=== PATIENT | female | born 2000 | race Caucasian/White ===

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

== ENCOUNTER 2018-05-15 18:35 | Emergency (ER) | payer OTHER ==
[~2018-05-15] VITALS: Ht 170.2 cm; Wt 64.0 kg
[~2018-05-15 18:35] MED LIST changes: +PREN1TAB60 PO
[2018-05-15 19:34] LABS: CULTURE INDICATED? YES; MICROSCOPIC INDICATED
[2018-05-15 19:37] LABS: ALANINE AMINOTRANSFERASE 31 U/L (12-78); ALBUMIN 2.6 g/dL (3.4-5.0); ANION GAP 9 mmol/L (5-15); CALCIUM 8.1 mg/dL (8.5-10.1); CHLORIDE 111 mmol/L (98-107); CREATININE 0.55 mg/dL (0.55-1.02)
[2018-05-15 19:39] LABS: ALKALINE PHOSPHATASE 126 U/L (45-117); BILIRUBIN,TOTAL 0.6 mg/dL (0.2-1.0); TOTAL PROTEIN 6.1 g/dL (6.4-8.2)
[2018-05-15] MEDS ORDERED: IBUPROFEN 200 MG TABLET PO ONE (20:00)
[2018-05-15] MEDS ORDERED: IBUPROFEN 200 MG TABLET ONE (20:02)
[2018-05-15 20:26] LABS: BASOPHILS # (AUTO) 0.02 x10^3/uL (0-0.3); BASOPHILS % (AUTO) 0 % (0-1); EOSINOPHILS % (AUTO) 0 % (1-7); LYMPHOCYTES # (AUTO) 1.14 x10^3/uL (1-6.1); LYMPHOCYTES % (AUTO) 8 % (22-44); MD NO; MEAN CORPUSCULAR HEMOGLOBIN 27.8 pg (27.0-34.8); MEAN CORPUSCULAR HGB CONC 33.4 g/dL (32.4-35.8); MEAN CORPUSCULAR VOLUME 83.4 fL (80-100); MEAN PLATELET VOLUME 10.4 fL (7.4-10.4); MONOCYTES # (AUTO) 0.46 x10^3/uL (0-1.4); MONOCYTES % (AUTO) 3 % (2-9); NEUTROPHILS # (AUTO) 12.45 x10^3/uL (1.8-8.0); NEUTROPHILS % (AUTO) 89 % (42-75); PLATELET COUNT 215 x10^3/uL (130-400); RED CELL DISTRIBUTION WIDTH 16.1 % (9.6-15.2)
[2018-05-15 20:48] VITALS: BP 125/69
== END 2018-05-15 20:51 | disposition home or self-care (01) ==
LOC: ED 20:14
DX: O72.1 Other immediate postpartum hemorrhage (principal); N95.0 Postmenopausal bleeding
CPT/HCPCS: 36415; 80053; 81001; 85025; 87086; 99284

== ENCOUNTER 2018-09-19 19:36 | Emergency (ER) | payer OTHER ==
[~2018-09-19] VITALS: Ht 170.2 cm; Wt 50.9 kg
[2018-09-19] MEDS ORDERED: SODIUM CHLORIDE 0.9% 1,000ML IVBOLUS ONE (20:00)
[2018-09-19] MEDS ORDERED: SODIUM CHLORIDE FLUSH 10ML SYR IVF ONE (20:00)
[2018-09-19 20:14] LABS: BASOPHILS # (AUTO) 0.02 x10^3/uL (0-0.3); BASOPHILS % (AUTO) 0 % (0-1); EOSINOPHILS % (AUTO) 0 % (1-7); LYMPHOCYTES # (AUTO) 1.45 x10^3/uL (1-6.1); LYMPHOCYTES % (AUTO) 12 % (22-44); MD NO; MEAN CORPUSCULAR HEMOGLOBIN 26.8 pg (27.0-34.8); MEAN CORPUSCULAR VOLUME 81.2 fL (80-100); MEAN PLATELET VOLUME 9.2 fL (7.4-10.4); MONOCYTES # (AUTO) 0.62 x10^3/uL (0-1.4); MONOCYTES % (AUTO) 5 % (2-9); NEUTROPHILS # (AUTO) 10.01 x10^3/uL (1.8-8.0); NEUTROPHILS % (AUTO) 83 % (42-75); PLATELET COUNT 236 x10^3/uL (130-400); RED CELL DISTRIBUTION WIDTH 15.1 % (9.6-15.2)
[2018-09-19 20:23] LABS: ALANINE AMINOTRANSFERASE 39 U/L (12-78); ALBUMIN 3.5 g/dL (3.4-5.0); ANION GAP 10 mmol/L (5-15); CALCIUM 8.2 mg/dL (8.5-10.1); CHLORIDE 114 mmol/L (98-107); CREATININE 0.58 mg/dL (0.55-1.02)
[2018-09-19 20:28] LABS: ALKALINE PHOSPHATASE 76 U/L (45-117); BILIRUBIN,TOTAL 0.4 mg/dL (0.2-1.0); TOTAL PROTEIN 6.5 g/dL (6.4-8.2)
[2018-09-19] MEDS ORDERED: KETOROLAC 30 MG/1 ML ONE (20:31)
[2018-09-19 20:52] LABS: MICROSCOPIC AUTO
[2018-09-19 20:55] LABS: CULTURE INDICATED? YES
[2018-09-19] MEDS ORDERED: KETOROLAC 30 MG/1 ML IVPush ONE (21:00)
[2018-09-19 23:36] VITALS: BP 137/61
== END 2018-09-19 23:37 | disposition home or self-care (01) ==
LOC: ED 21:10
DX: S06.0X9A Concussion with loss of consciousness of unspecified duration, initial encounter (principal); N83.11 Corpus luteum cyst of right ovary; R55 Syncope and collapse; R51 Headache; W19.XXXA Unspecified fall, initial encounter; Y93.89 Activity, other specified; Y99.8 Other external cause status; Y92.89 Other specified places as the place of occurrence of the external cause
CPT/HCPCS: 36415; 70450; 76830; 80053; 81001; 84703; 85025; 87086; 93005; 96361; 96374; 99284; J1885; J7030

== ENCOUNTER 2018-12-07 07:49 | Emergency (ER) | payer OTHER ==
[~2018-12-07] VITALS: Ht 167.6 cm; Wt 61.6 kg
[2018-12-07 07:53] VITALS: BP 113/71
[2018-12-07 08:25] LABS: MICROSCOPIC NOT IND
[2018-12-07 08:33] LABS: CULTURE INDICATED? NO
[2018-12-07 08:37] LABS: BASOPHILS # (AUTO) 0.02 x10^3/uL (0-0.3); BASOPHILS % (AUTO) 0 % (0-1); EOSINOPHILS % (AUTO) 0 % (1-7); LYMPHOCYTES # (AUTO) 1.53 x10^3/uL (1-6.1); LYMPHOCYTES % (AUTO) 20 % (22-44); MD NO; MEAN CORPUSCULAR HGB CONC 32.1 g/dL (32.4-35.8); MEAN CORPUSCULAR VOLUME 80.8 fL (80-100); MEAN PLATELET VOLUME 9.4 fL (7.4-10.4); MONOCYTES # (AUTO) 0.46 x10^3/uL (0-1.4); MONOCYTES % (AUTO) 6 % (2-9); NEUTROPHILS # (AUTO) 5.66 x10^3/uL (1.8-8.0); NEUTROPHILS % (AUTO) 74 % (42-75); PLATELET COUNT 262 x10^3/uL (130-400); RED BLOOD COUNT 4.52 x10^6/uL (3.82-5.3); RED CELL DISTRIBUTION WIDTH 16.7 % (9.6-15.2)
[2018-12-07 08:49] LABS: ALBUMIN 3.6 g/dL (3.4-5.0); ANION GAP 5 mmol/L (5-15); CALCIUM 8.6 mg/dL (8.5-10.1); CHLORIDE 108 mmol/L (98-107); CREATININE 0.82 mg/dL (0.55-1.02)
--- NOTE | 2018-12-07 08:56 | NUR ---
PT TO IMAGING NOW
== END 2018-12-07 10:57 | disposition home or self-care (01) ==
LOC: ED 10:08
DX: N83.292 Other ovarian cyst, left side (principal); N83.291 Other ovarian cyst, right side; R10.2 Pelvic and perineal pain
CPT/HCPCS: 36415; 76830; 80048; 81003; 82040; 84703; 85025; 93005; 99284

== ENCOUNTER 2019-01-01 23:24 | Emergency (ER) | payer OTHER ==
[~2019-01-01] VITALS: Ht 170.2 cm; Wt 61.1 kg
[2019-01-01 23:26] VITALS: BP 127/85
[2019-01-02 00:01] LABS: BASOPHILS # (AUTO) 0.03 x10^3/uL (0-0.3); BASOPHILS % (AUTO) 1 % (0-1); EOSINOPHILS # (AUTO) 0.14 x10^3/uL (0-0.8); EOSINOPHILS % (AUTO) 2 % (1-7); LYMPHOCYTES # (AUTO) 1.89 x10^3/uL (1-6.1); LYMPHOCYTES % (AUTO) 28 % (22-44); MD NO; MEAN CORPUSCULAR HEMOGLOBIN 27.4 pg (27.0-34.8); MEAN CORPUSCULAR HGB CONC 33.1 g/dL (32.4-35.8); MEAN CORPUSCULAR VOLUME 82.8 fL (80-100); MEAN PLATELET VOLUME 9.5 fL (7.4-10.4); MONOCYTES # (AUTO) 0.42 x10^3/uL (0-1.4); MONOCYTES % (AUTO) 6 % (2-9); NEUTROPHILS # (AUTO) 4.29 x10^3/uL (1.8-8.0); NEUTROPHILS % (AUTO) 63 % (42-75); PLATELET COUNT 218 x10^3/uL (130-400); RED BLOOD COUNT 4.47 x10^6/uL (3.82-5.3); RED CELL DISTRIBUTION WIDTH 16.2 % (9.6-15.2)
[2019-01-02 00:13] LABS: ALANINE AMINOTRANSFERASE 29 U/L (12-78); ALBUMIN 3.5 g/dL (3.4-5.0); ANION GAP 4 mmol/L (5-15); CALCIUM 8.1 mg/dL (8.5-10.1); CHLORIDE 114 mmol/L (98-107); CREATININE 0.65 mg/dL (0.55-1.02)
[2019-01-02 00:16] LABS: ALKALINE PHOSPHATASE 66 U/L (45-117); BILIRUBIN,TOTAL 0.2 mg/dL (0.2-1.0); TOTAL PROTEIN 6.6 g/dL (6.4-8.2)
[2019-01-02 00:22] LABS: HCG UR SG 1.024 (1.003-1.030)
[2019-01-02 00:23] LABS: MICROSCOPIC INDICATED
[2019-01-02 00:31] LABS: CULTURE INDICATED? NO
--- NOTE | 2019-01-02 01:19 | NUR ---
PT RESTING CALMLY IN BED IN HOSPITAL GOWN WITH EYES CLOSED. NO STATED NEEDS AT THIS TIME.
== END 2019-01-02 01:33 | disposition home or self-care (01) ==
LOC: ED 23:45
DX: R10.11 Right upper quadrant pain (principal); R10.31 Right lower quadrant pain; R11.0 Nausea
CPT/HCPCS: 36415; 76700; 76830; 80053; 81001; 81025; 83690; 85025; 99284

== ENCOUNTER 2019-01-27 03:03 | Emergency (ER) | payer OTHER ==
[~2019-01-27] VITALS: Ht 170.2 cm; Wt 63.0 kg
[~2019-01-27 03:03] MED LIST changes: +ACET325T14 PO; +CALC200T24 PO; +FLUD0.1T PO; +LIDO700A20 TD; +MIDO5TAB9 PO
--- NOTE | 2019-01-27 03:29 | NUR ---
PT HERE FOR DIZZINESS AT WORK TODAY AFTER STANDING UP DURING LUNCH. PT HAS HX OF SAME. VSS. PT AMBULATED TO BATHROOM WITH A STEADY GAIT. PT ALSO COMPLAINING OF RIGHT RIB PAIN. CALL LIGHT IN REACH
[2019-01-27 03:31] LABS: BASOPHILS # (AUTO) 0.03 x10^3/uL (0-0.3); BASOPHILS % (AUTO) 1 % (0-1); EOSINOPHILS # (AUTO) 0.09 x10^3/uL (0-0.8); EOSINOPHILS % (AUTO) 2 % (1-7); LYMPHOCYTES # (AUTO) 1.54 x10^3/uL (1-6.1); LYMPHOCYTES % (AUTO) 25 % (22-44); MD NO; MEAN CORPUSCULAR HEMOGLOBIN 27.6 pg (27.0-34.8); MEAN CORPUSCULAR HGB CONC 33.8 g/dL (32.4-35.8); MEAN CORPUSCULAR VOLUME 81.7 fL (80-100); MEAN PLATELET VOLUME 9.1 fL (7.4-10.4); MONOCYTES # (AUTO) 0.53 x10^3/uL (0-1.4); MONOCYTES % (AUTO) 9 % (2-9); NEUTROPHILS # (AUTO) 3.98 x10^3/uL (1.8-8.0); NEUTROPHILS % (AUTO) 65 % (42-75); PLATELET COUNT 227 x10^3/uL (130-400); RED BLOOD COUNT 3.39 x10^6/uL (3.82-5.3); RED CELL DISTRIBUTION WIDTH 16.3 % (9.6-15.2)
[2019-01-27 03:41] LABS: ALBUMIN 3.5 g/dL (3.4-5.0); ANION GAP 6 mmol/L (5-15); CALCIUM 8.1 mg/dL (8.5-10.1); CHLORIDE 114 mmol/L (98-107); CREATININE 0.65 mg/dL (0.55-1.02)
[2019-01-27 04:25] VITALS: BP 108/71
--- NOTE | 2019-01-27 04:39 | NUR ---
Patient given discharge instructions and they have confirmed that they understand the instructions. Patient ambulatory with steady gait.
== END 2019-01-27 04:57 | disposition home or self-care (01) ==
LOC: ED 03:53
DX: R55 Syncope and collapse (principal); D50.0 Iron deficiency anemia secondary to blood loss (chronic)
CPT/HCPCS: 36415; 80048; 82040; 84703; 85025; 93005; 99284

== ENCOUNTER 2019-03-16 14:27 | Emergency (ER) | payer OTHER ==
[~2019-03-16] VITALS: Ht 170.2 cm; Wt 63.0 kg
[2019-03-16 14:53] LABS: BASOPHILS # (AUTO) 0.07 x10^3/uL (0-0.1); BASOPHILS % (AUTO) 1 % (0-1); EOSINOPHILS % (AUTO) 0 % (1-7); LYMPHOCYTES # (AUTO) 1.56 x10^3/uL (1-3.4); LYMPHOCYTES % (AUTO) 16 % (22-44); MD NO; MEAN CORPUSCULAR HEMOGLOBIN 25.8 pg (27.0-34.8); MEAN CORPUSCULAR VOLUME 80.8 fL (80-100); MEAN PLATELET VOLUME 9.3 fL (7.4-10.4); MONOCYTES # (AUTO) 0.62 x10^3/uL (0.2-0.8); MONOCYTES % (AUTO) 7 % (2-9); NEUTROPHILS # (AUTO) 7.23 x10^3/uL (1.8-6.8); NEUTROPHILS % (AUTO) 76 % (42-75); PLATELET COUNT 270 x10^3/uL (130-400); RED BLOOD COUNT 4.18 x10^6/uL (3.82-5.3); RED CELL DISTRIBUTION WIDTH 15.8 % (9.6-15.2)
--- NOTE | 2019-03-16 14:55 | NUR ---
TASK RN NOTE: PT GABRIEL, REPORT RECEIVED FROM EMS. C/O RIGHT LOWER ABD PAIN X 2 DAYS WITH YELLOW VAG DISCHARGE. DIZZINESS UPON STANDING STARTING TODAY. RECENT DX WITH HOSPITALIZATION FOR ORTHOSTATIC HYPOTENSION. LMP 01/30/19, STATES SHE HAS HAD POS TEST X 2, BUT NO US DONE YET. FINGERSTICK BG [address] R[address]TE DELIVERY CLERK. EKG TAKEN BY EDT, REVIEWED BY MIHIR SUMMERS. PT UP TO BATHROOM WITH TECH ASSIST AT THIS TIME, REPORT GIVEN TO PEYMAN SUGGS.
[2019-03-16] MEDS ORDERED: ACETAMINOPHEN 325 MG TABLET PO ONE (15:00)
[2019-03-16 15:05] LABS: ALANINE AMINOTRANSFERASE 25 U/L (12-78); ALBUMIN 3.4 g/dL (3.4-5.0); ANION GAP 6 mmol/L (5-15); CALCIUM 8.4 mg/dL (8.5-10.1); CHLORIDE 111 mmol/L (98-107); CREATININE 0.59 mg/dL (0.55-1.02)
[2019-03-16 15:23] LABS: ALKALINE PHOSPHATASE 61 U/L (45-117); BILIRUBIN,TOTAL 0.2 mg/dL (0.2-1.0); TOTAL PROTEIN 6.5 g/dL (6.4-8.2)
[2019-03-16] MEDS ORDERED: ACETAMINOPHEN 325 MG TABLET ONE (16:36)
[2019-03-16 17:04] LABS: CLUE CELLS PRESENT (NONE SEEN)
[2019-03-16 17:05] LABS: WET PREP WBCS FEW (FEW)
[2019-03-16 17:12] LABS: MICROSCOPIC NOT IND
[2019-03-16 17:29] LABS: CULTURE INDICATED? NO
[2019-03-16 18:12] VITALS: BP 113/70
--- NOTE | 2019-03-16 18:13 | NUR ---
TASK RN: Patient/Caregiver given discharge instructions and they have confirmed that they understand the instructions. Patient ambulatory with steady gait.
== END 2019-03-16 18:14 | disposition home or self-care (01) ==
LOC: ED 15:34
DX: O26.891 Other specified pregnancy related conditions, first trimester (principal); R42 Dizziness and giddiness; N76.0 Acute vaginitis; Z3A.08 8 weeks gestation of pregnancy
CPT/HCPCS: 36415; 76801; 80053; 81003; 84702; 85025; 86901; 87210; 87491; 87591; 87808; 93005; 99284

== ENCOUNTER 2019-03-28 11:30 | Emergency (ER) | payer OTHER ==
[~2019-03-28] VITALS: Ht 170.2 cm; Wt 62.3 kg
--- NOTE | 2019-03-28 11:55 | NUR ---
pt up to restroom with standby assist. pt ambulates with a steady gait. pt educated on calling before attempting to get up.. pt agrees and call light is in reach.
[2019-03-28] MEDS ORDERED: SODIUM CHLORIDE 0.9%, 500ML IVBOLUS ONE (12:00)
[2019-03-28] MEDS ORDERED: ONDANSETRON 2MG/ML, 2ML ONE (12:22)
[2019-03-28 12:27] LABS: MICROSCOPIC NOT IND
--- NOTE | 2019-03-28 12:28 | NUR ---
pt call light multiple times. initial call light pt c/o headache and the provider is made aware. no orders recieved. pt call light pt c/o nausea, provider made aware. pt medicated per order. pt call light, wants another warm blanket. blanket provided.
[2019-03-28 12:29] LABS: BASOPHILS # (AUTO) 0.05 x10^3/uL (0-0.1); BASOPHILS % (AUTO) 0 % (0-1); EOSINOPHILS % (AUTO) 0 % (1-7); LYMPHOCYTES # (AUTO) 1.12 x10^3/uL (1-3.4); LYMPHOCYTES % (AUTO) 11 % (22-44); MD NO; MEAN CORPUSCULAR HEMOGLOBIN 25.3 pg (27.0-34.8); MEAN CORPUSCULAR HGB CONC 31.6 g/dL (32.4-35.8); MEAN PLATELET VOLUME 9.7 fL (7.4-10.4); MONOCYTES # (AUTO) 0.57 x10^3/uL (0.2-0.8); MONOCYTES % (AUTO) 5 % (2-9); NEUTROPHILS # (AUTO) 8.91 x10^3/uL (1.8-6.8); NEUTROPHILS % (AUTO) 84 % (42-75); PLATELET COUNT 227 x10^3/uL (130-400); RED BLOOD COUNT 4.48 x10^6/uL (3.82-5.3); RED CELL DISTRIBUTION WIDTH 16.2 % (9.6-15.2)
[2019-03-28 12:30] LABS: CULTURE INDICATED? NO
[2019-03-28] MEDS ORDERED: ONDANSETRON 2MG/ML, 2ML IVPush ONE (12:30)
[2019-03-28 12:43] LABS: ALBUMIN 3.4 g/dL (3.4-5.0); ANION GAP 8 mmol/L (5-15); CALCIUM 8.7 mg/dL (8.5-10.1); CHLORIDE 110 mmol/L (98-107); CREATININE 0.59 mg/dL (0.55-1.02)
--- NOTE | 2019-03-28 12:46 | NUR ---
pt call light on. pt wondering if she can "get something for my figueroa" pt informed that no new orders were recieved. pt informed that this rn will bring it to the attention of the provider
[2019-03-28 13:56] VITALS: BP 113/68
--- NOTE | 2019-03-28 14:00 | NUR ---
late note [id number] pt refusing to leave. providers made aware. provider in room to discuss with pt.
== END 2019-03-28 14:05 | disposition home or self-care (01) ==
LOC: ED 13:51
DX: O26.891 Other specified pregnancy related conditions, first trimester (principal); R55 Syncope and collapse; Z3A.08 8 weeks gestation of pregnancy
CPT/HCPCS: 36415; 80048; 81003; 82040; 82533; 83735; 84300; 85025; 93005; 96374; 99284; J2405

== ENCOUNTER 2019-12-08 16:31 | Emergency (ER) | payer OTHER, MEDICAID ==
[~2019-12-08] VITALS: Ht 170.2 cm; Wt 65.0 kg
[2019-12-08 16:48] VITALS: BP 119/49
[2019-12-08] MEDS ORDERED: OXYcodone/APAP 5/325MG TABLET ONE (17:57)
[2019-12-08] MEDS ORDERED: OXYcodone/APAP 5/325MG TABLET PO ONE (18:00)
--- NOTE | 2019-12-08 18:29 | NUR ---
MEDICATED, GIVEN ICE PACK
== END 2019-12-08 19:27 | disposition home or self-care (01) ==
LOC: ED 18:54
DX: S30.0XXA Contusion of lower back and pelvis, initial encounter (principal); X58.XXXA Exposure to other specified factors, initial encounter; Y93.89 Activity, other specified; Y92.89 Other specified places as the place of occurrence of the external cause; Y99.8 Other external cause status
CPT/HCPCS: 72110; 72220; 99284

== ENCOUNTER 2020-01-30 07:26 | Emergency (ER) | payer MEDICAID, OTHER ==
[~2020-01-30] VITALS: Ht 170.2 cm; Wt 65.9 kg
[2020-01-30 07:29] VITALS: BP 121/78
[2020-01-30] MEDS ORDERED: OXYcodone/APAP 5/325MG TABLET PO ONE (08:00)
--- NOTE | 2020-01-30 08:08 | NUR ---
requested records from [facility].
[2020-01-30] MEDS ORDERED: OXYcodone/APAP 5/325MG TABLET ONE (08:14)
--- NOTE | 2020-01-30 08:20 | NUR ---
PT HERE WITH C/O L HIP PAIN D/T FALL IN SHOWER 2 DAYS AGO. PT DID GO TO [facility] AND HAD FILMS OF HIP AND PELVIS, NO FRACTURE REPORTED PER PT. PT STATES PAIN GETS WORSE AT NIGHT AND SHE HAS TROUBLE WITH SLEEPING. PT STATES SHE IS HERE FOR PAIN CONTROL. RECORDS FROM [facility] REQUESTED
--- NOTE | 2020-01-30 08:49 | NUR ---
received records from [facility].
== END 2020-01-30 10:10 | disposition home or self-care (01) ==
LOC: ED 07:50
DX: S39.012A Strain of muscle, fascia and tendon of lower back, initial encounter (principal); S76.012A Strain of muscle, fascia and tendon of left hip, initial encounter; W18.2XXA Fall in (into) shower or empty bathtub, initial encounter; Y93.89 Activity, other specified; Y92.89 Other specified places as the place of occurrence of the external cause; Y99.8 Other external cause status
CPT/HCPCS: 99284

== ENCOUNTER 2020-02-13 09:12 | Emergency (ER) | payer OTHER, MEDICAID ==
[~2020-02-13] VITALS: Ht 170.2 cm; Wt 66.0 kg
[2020-02-13 09:20] VITALS: BP 152/86
--- NOTE | 2020-02-13 09:41 | NUR ---
ERMD at bedside for assessment.
--- NOTE | 2020-02-13 10:08 | NUR ---
Pt ok for D/C. Steady gait upon d/c, has all own belongings. Verbalized understanding of d/c paperwork.
== END 2020-02-13 10:10 | disposition home or self-care (01) ==
LOC: ED 09:45
DX: S39.012A Strain of muscle, fascia and tendon of lower back, initial encounter (principal); W18.2XXA Fall in (into) shower or empty bathtub, initial encounter; Y93.89 Activity, other specified; Y92.89 Other specified places as the place of occurrence of the external cause; Y99.8 Other external cause status
CPT/HCPCS: 99282

== ENCOUNTER 2020-02-26 09:28 | Emergency (ER) | payer OTHER, MEDICAID ==
[~2020-02-26] VITALS: Ht 170.2 cm; Wt 70.0 kg
[2020-02-26 09:46] VITALS: BP 129/88
--- NOTE | 2020-02-26 09:46 | NUR ---
FIRST CONTACT WITH PT. PT C/O LEFT HIP PAIN WORSENING FROM FALL 1.5 WEEKS AGO. STATED WAS HERE WHEN FIRST FELL. STATED HAVING NUMBNESS AND TINGLING ON FRONT OF LEFT LEG AND LOWER BACK PAIN. PT'S AOX4. RESPS EVEN AND UNLABORED. BP/SPO2 MONITORS IN PLACE. CALL LIGHT WITHIN REACH. PA AT BEDSIDE TO EVALUATE AT THIS TIME.
[2020-02-26] MEDS ORDERED: KETOROLAC 30 MG/1 ML ONE (09:56)
[2020-02-26] MEDS ORDERED: DIAZEPAM 5 MG TABLET ONE (09:56)
[2020-02-26] MEDS ORDERED: KETOROLAC 30 MG/1 ML IM ONE (10:00)
[2020-02-26] MEDS ORDERED: DIAZEPAM 5 MG TABLET PO ONE (10:00)
--- NOTE | 2020-02-26 10:03 | NUR ---
pe medicated per emar. pt tolerated well. warm blanket provided per request. call light within reach. rails up x 2.
--- NOTE | 2020-02-26 10:18 | NUR ---
pt amb to br and back to room with steady gait.
--- NOTE | 2020-02-26 10:22 | NUR ---
pt c/o dz at this time. pt states "i need more time to go home like 15 min or so." electrical discharge machine operator/pa notified.
--- NOTE | 2020-02-26 10:37 | NUR ---
Patient given discharge instructions and they have confirmed that they understand the instructions. Patient ambulatory with steady gait.
== END 2020-02-26 10:37 | disposition home or self-care (01) ==
LOC: ED 09:38
DX: G89.29 Other chronic pain (principal); M25.552 Pain in left hip; M54.5 Low back pain
CPT/HCPCS: 96372; 99283; J1885

== ENCOUNTER 2020-03-02 07:09 | Emergency (ER) | payer OTHER, MEDICAID ==
[~2020-03-02] VITALS: Ht 170.2 cm; Wt 67.5 kg
[2020-03-02 07:16] VITALS: BP 139/81
[2020-03-02] MEDS ORDERED: LIDOCAINE-MPF 1%, 5ML ONE (08:17)
== END 2020-03-02 09:17 | disposition home or self-care (01) ==
LOC: ED 07:35
DX: L60.0 Ingrowing nail (principal); M79.674 Pain in right toe(s); Z88.6 Allergy status to analgesic agent; Z88.8 Allergy status to other drugs, medicaments and biological substances
CPT/HCPCS: 11730; 99284